=== PATIENT | male | born 1975 | race Caucasian/White ===

== ENCOUNTER → 2016-05-23 | Outpatient (REF) | payer OTHER | LOC: M LAB REF 16:47 | PROVIDERS: ATTEND Family Medicine | DX: L02.416 Cutaneous abscess of left lower limb (principal) ==

== ENCOUNTER 2016-12-13 08:09 | Outpatient (CLI) | payer OTHER ==
[~2016-12-13] VITALS: Ht 172.7 cm; Wt 97.5 kg
[~2016-12-13 08:09] MED LIST: DULE100A IN; LISI-538 PO; MULT1TAB11 PO; NEXI40CA PO; SING10TA32 PO
[2016-12-13] MEDS ORDERED: NS 1,000 ML IV ONE (08:15)
[2016-12-13] MEDS ORDERED: PROPOFOL 200 MG/20 ML VIAL As Ordered ONE (09:19)
[2016-12-13] MEDS ORDERED: LIDOCAINE 2% INJ 100 MG/5 ML SDV (FOR ANES.) As Ordered ONE (09:19)
--- NOTE | 2016-12-13 09:35 | ROOR ---
Patient Name: Ramses Sierra Procedure Date: 12/13/2016 9:09 AM Date of : 1975 Age: 41 Room: [facility] Gender: Male Note Status: Finalized Procedure: Colonoscopy Indications: Hematochezia Providers: Wayne Sun MD Referring MD: Janneth MILLER DO Requesting Provider: Medicines: Monitored Anesthesia Care Complications: No immediate complications. Procedure: Pre-Anesthesia Assessment: - Prior to the procedure, a History and Physical was performed, and patient medications and allergies were reviewed. The patient is competent. The risks and benefits of the procedure and the sedation options and risks were discussed with the patient. All questions were answered and informed consent was obtained. Patient identification and proposed procedure were verified by the physician, the nurse and the anesthesiologist in the procedure room. Mental Status Examination: alert and oriented. Airway Examination: normal oropharyngeal airway and neck mobility. Respiratory Examination: clear to auscultation. CV Examination: normal. Prophylactic Antibiotics: The patient does not require prophylactic antibiotics. Prior Anticoagulants: The patient has taken no previous anticoagulant or antiplatelet agents. ASA Grade Assessment: II - A patient with mild systemic disease. After reviewing the risks and benefits, the patient was deemed in satisfactory condition to undergo the procedure. The anesthesia plan was to use monitored anesthesia care (MAC). Immediately prior to administration of medications, the patient was re-assessed for adequacy to receive sedatives. The heart rate, respiratory rate, oxygen saturations, blood pressure, adequacy of pulmonary ventilation, and response to care were monitored throughout the procedure. The physical status of the patient was re-assessed after the procedure. The Colonoscope was introduced through the anus and advanced to the terminal ileum, with identification of the appendiceal orifice and IC valve. The colonoscopy was performed without difficulty. The patient tolerated the procedure well. The quality of the bowel preparation was good. The terminal ileum, ileocecal valve, appendiceal orifice, and rectum were photographed. Scope insertion time was 3 minutes. Scope withdrawal time was 10 minutes. The total duration of the procedure was 16 minutes. Findings: The perianal exam findings include non-thrombosed external hemorrhoids. The terminal ileum appeared normal. A 4 mm polyp was found in the rectum. The polyp was sessile. The polyp was removed with a cold biopsy forceps. Resection and retrieval were complete. Non-bleeding external and internal hemorrhoids were found during retroflexion. The hemorrhoids were large. Impression: - Non-thrombosed external hemorrhoids found on perianal exam. - The examined portion of the ileum was normal. - One 4 mm polyp in the rectum, removed with a cold biopsy forceps. Resected and retrieved. - Non-bleeding external and internal hemorrhoids. Recommendation: - Patient has a contact number available for emergencies. The signs and symptoms of potential delayed complications were discussed with the patient. Return to normal activities tomorrow. Written discharge instructions were provided to the patient. - High fiber diet. - Continue present medications. - Await pathology results. - Preparation H ointment: Apply externally daily for 7 days. - Repeat colonoscopy in 5-10 years for surveillance based on pathology results. - Return to GI clinic as previously scheduled. - Return to primary care physician. Wayne Sun MD Wayne Sun MD 12/13/2016 9:35:12 AM This report has been signed electronically. Number of Addenda: 0 Note Initiated On: 12/13/2016 9:09 AM Estimated Blood Loss: Estimated blood loss was minimal.
[2016-12-13 09:55] VITALS: BP 153/85
[2017-01-31] MEDS ORDERED: LISI-538 PO (11:22)
== END 2016-12-13 10:05 | disposition home or self-care (01) ==
LOC: M OPP 08:09
PROVIDERS: ATTEND Internal Medicine Gastroenterology
DX: K92.1 Melena (principal); K62.1 Rectal polyp; K64.4 Residual hemorrhoidal skin tags; K64.8 Other hemorrhoids; I10 Essential (primary) hypertension; Z87.19 Personal history of other diseases of the digestive system; K21.9 Gastro-esophageal reflux disease without esophagitis; Z79.899 Other long term (current) drug therapy; Z80.42 Family history of malignant neoplasm of prostate

== ENCOUNTER 2017-02-07 11:36 | Day surgery (SDC) | payer OTHER ==
[~2017-02-07] VITALS: Ht 172.7 cm; Wt 96.6 kg
[2017-02-07] MEDS ORDERED: NS 1,000 ML IV ONE (13:15)
[2017-02-07] MEDS ORDERED: GLYCOPYRROLATE INJ 0.2 MG/ML 2 ML VIAL As Ordered ONE (14:12)
[2017-02-07] MEDS ORDERED: PROPOFOL 200 MG/20 ML VIAL As Ordered ONE (14:20)
--- NOTE | 2017-02-07 14:38 | ROOR ---
Patient Name: Ramses Sierra Procedure Date: 02/07/2017 2:14 PM Date of : 1975 Age: 41 Room: [facility] Gender: Male Note Status: Finalized Procedure: Upper GI endoscopy Indications: Diagnostic sampling is indicated, Sampling of fluid is indicated Providers: Wayne Sun MD Referring MD: Janneth MILLER DO Requesting Provider: Medicines: Monitored Anesthesia Care Complications: No immediate complications. Procedure: Pre-Anesthesia Assessment: - Prior to the procedure, a History and Physical was performed, and patient medications and allergies were reviewed. The patient is competent. The risks and benefits of the procedure and the sedation options and risks were discussed with the patient. All questions were answered and informed consent was obtained. Patient identification and proposed procedure were verified by the physician, the nurse and the medical detail representative in the procedure room. Mental Status Examination: alert and oriented. Airway Examination: normal oropharyngeal airway and neck mobility. Respiratory Examination: clear to auscultation. CV Examination: normal. Prophylactic Antibiotics: The patient does not require prophylactic antibiotics. Prior Anticoagulants: The patient has taken no previous anticoagulant or antiplatelet agents. ASA Grade Assessment: II - A patient with mild systemic disease. After reviewing the risks and benefits, the patient was deemed in satisfactory condition to undergo the procedure. The anesthesia plan was to use monitored anesthesia care (MAC). Immediately prior to administration of medications, the patient was re-assessed for adequacy to receive sedatives. The heart rate, respiratory rate, oxygen saturations, blood pressure, adequacy of pulmonary ventilation, and response to care were monitored throughout the procedure. The physical status of the patient was re-assessed after the procedure. The Endoscope was introduced through the mouth, and advanced to the second part of duodenum. The upper GI endoscopy was accomplished without difficulty. The patient tolerated the procedure well. Findings: Scattered islands of salmon-colored mucosa were present from 39 to 41 cm. No other visible abnormalities were present. The maximum longitudinal extent of these esophageal mucosal changes was 2 cm in length. Biopsies were taken with a cold forceps for histology. Verification of patient identification for the specimen was done by the physician and nurse using the patient's name, date and medical record number. Estimated blood loss was minimal. Diffuse mildly erythematous mucosa without bleeding was found in the gastric antrum. Gastric fluid aspirated for PH testing. Biopsies were taken with a cold forceps for histology. The duodenal bulb and second portion of the duodenum were normal. Impression: - [place]-colored mucosa suspicious for short-segment Vu's esophagus. Biopsied. - Erythematous mucosa in the antrum. Biopsied. - Normal duodenal bulb and second portion of the duodenum. Recommendation: - Patient has a contact number available for emergencies. The signs and symptoms of potential delayed complications were discussed with the patient. Return to normal activities tomorrow. Written discharge instructions were provided to the patient. - Resume previous diet. - Continue present medications. - Await pathology results and Gastric PH results. - Use Nexium (esomeprazole) 40 mg PO daily. - Repeat upper endoscopy in 1 year for surveillance based on pathology results. - Return to GI clinic as previously scheduled on 02/22/2017 at 11:15 AM. - Return to primary care physician. Wayne Sun MD Wayne Sun MD 02/07/2017 2:37:50 PM This report has been signed electronically. Number of Addenda: 0 Note Initiated On: 02/07/2017 2:14 PM Estimated Blood Loss: Estimated blood loss was minimal.
[2017-02-07 14:50] VITALS: BP 159/86
== END 2017-02-07 15:03 | disposition home or self-care (01) ==
LOC: M OPP 11:36 → EDSTATUS 13:15 → M OPP 15:03
PROVIDERS: ATTEND Internal Medicine Gastroenterology
DX: K25.9 Gastric ulcer, unspecified as acute or chronic, without hemorrhage or perforation (principal); K22.8 Other specified diseases of esophagus; K31.89 Other diseases of stomach and duodenum; K29.70 Gastritis, unspecified, without bleeding; I10 Essential (primary) hypertension; Z79.899 Other long term (current) drug therapy; Z80.42 Family history of malignant neoplasm of prostate

== ENCOUNTER → 2017-09-12 | Outpatient (CLI) | payer OTHER ==
[2017-09-12 17:23] LABS: BASO # 0.1 10^3/uL (0.0-0.2); EOS # 0.1 10^3/uL (0.0-0.50); EOS % 1.7 % (0.0-3.0); HEMATOCRIT 42.7 % (42.0-52.0); HEMOGLOBIN 15.1 g/dl (13.5-17.5); IMMATURE GRANULOCYTE % 0.7 % (0-3.0); LYMPH # 1.9 10^3/uL (1.5-4.5); LYMPH % 26.7 % (24.0-44.0); MEAN CORPUSCULAR HEMOGLOBIN 32.5 pg (27.0-33.0); MEAN CORPUSCULAR HGB CONC 35.4 g/dl (32.0-36.5); MEAN CORPUSCULAR VOLUME 91.8 fl (80.0-96.0); MONO # 0.7 10^3/uL (0.0-0.8); MONO % 9.2 % (0.0-5.0); NEUTROPHILS # 4.3 10^3/uL (1.8-7.7); NEUTROPHILS % 60.7 % (36.0-66.0); PLATELET COUNT, AUTOMATED 216 10^3/uL (150-450); RED BLOOD COUNT 4.65 10^6/uL (4.30-6.10); RED CELL DISTRIBUTION WIDTH 12.2 % (11.5-14.5); WHITE BLOOD COUNT 7.1 10^3/uL (4.0-10.0)
[2017-09-12 18:02] LABS: ALBUMIN 4.6 GM/DL (3.2-5.2); ALBUMIN/GLOBULIN RATIO 1.31 (1.00-1.93); ALKALINE PHOSPHATASE 53 U/L (45-117); ALT/SGPT 33 U/L (12-78); ANION GAP 10 MEQ/L (8-16); AST/SGOT 32 U/L (7-37); BILIRUBIN,TOTAL 0.6 MG/DL (0.2-1.0); BLOOD UREA NITROGEN 25 MG/DL (7-18); CALCIUM LEVEL 9.2 MG/DL (8.5-10.1); CARBON DIOXIDE LEVEL 27 MEQ/L (21-32); CHLORIDE LEVEL 107 MEQ/L (98-107); CREATININE FOR GFR 1.08 MG/DL (0.70-1.30); GLOMERULAR FILTRATION RATE > 60.0 (>60); GLUCOSE, FASTING 90 MG/DL (70-100); POTASSIUM SERUM 4.7 MEQ/L (3.5-5.1); SODIUM LEVEL 144 MEQ/L (136-145); TOTAL PROTEIN 8.1 GM/DL (6.4-8.2)
== END ==
LOC: M WUC 13:42
DX: R11.0 Nausea (principal)
CPT/HCPCS: 80053

== ENCOUNTER → 2017-09-18 | Outpatient (CLI) | payer OTHER ==
[2017-09-18 15:47] LABS: FREE T4 0.83 NG/DL (0.76-1.46)
[2017-09-20 14:47] LABS: Lyme Disease IgG Ab 18 kDa Ban Present (.); Lyme Disease IgG Ab 23 kDa Ban Present (.); Lyme Disease IgG Ab 28 kDa Ban Present (.); Lyme Disease IgG Ab 30 kDa Ban Present (.); Lyme Disease IgG Ab 39 kDa Ban Present (.); Lyme Disease IgG Ab 41 kDa Ban Present (.); Lyme Disease IgG Ab 45 kDa Ban Present (.); Lyme Disease IgG Ab 58 kDa Ban Present (.); Lyme Disease IgG Ab 66 kDa Ban Present (.); Lyme Disease IgG Ab 93 kDa Ban Present (.); Lyme Disease IgG West Blot Int Positive (.); Lyme Disease IgM Ab 23 kDa Ban Present (.); Lyme Disease IgM Ab 39 kDa Ban Absent (.); Lyme Disease IgM Ab 41 kDa Ban Absent (.); Lyme Disease IgM Ab Quantitati 0.99 index (0.00-0.79); Lyme Disease IgM West Blot Int Negative (.)
== END ==
LOC: M SMT 11:16
DX: R42 Dizziness and giddiness (principal)
CPT/HCPCS: 84443

== ENCOUNTER → 2019-05-29 | Outpatient (CLI) | payer OTHER ==
[2019-05-29 12:35] LABS: BLOOD UREA NITROGEN 20 MG/DL (7-18); CALCIUM LEVEL 9.3 MG/DL (8.5-10.1); CARBON DIOXIDE LEVEL 30 MEQ/L (21-32); CHLORIDE LEVEL 101 MEQ/L (98-107); CREATININE FOR GFR 1.03 MG/DL (0.70-1.30); GLOMERULAR FILTRATION RATE > 60.0 (>60); GLUCOSE, FASTING 103 MG/DL (70-100); POTASSIUM SERUM 4.7 MEQ/L (3.5-5.1); SODIUM LEVEL 137 MEQ/L (136-145)
== END ==
LOC: M PLALAB 09:47
PROVIDERS: ATTEND Family Medicine
DX: I10 Essential (primary) hypertension (principal)

== ENCOUNTER 2019-06-11 12:36 | Emergency (ER) | payer OTHER ==
[~2019-06-11] VITALS: Ht 175.3 cm; Wt 95.5 kg
[~2019-06-11 12:36] MED LIST changes: +RALTEGRAVIR 400 MG TAB (ISENTRESS) PO SCH; +TRUVADA 200MG/300MG TABLET PO SCH
[2019-06-11] MEDS ORDERED: EXPOSURE KIT-ADULT 7 DAY SUPPLY PO ONE (12:45)
[2019-06-11] MEDS ORDERED: VALS1TAB67 PO (12:47)
[2019-06-11] MEDS ORDERED: HYDR25TAB PO (12:47)
[2019-06-11 12:52] VITALS: BP 124/58
[2019-06-11] MEDS ORDERED: RALTEGRAVIR 400 MG TAB (ISENTRESS) PO ONE (13:00)
[2019-06-11] MEDS ORDERED: TRUVADA 200MG/300MG TABLET PO ONE (13:00)
[2019-06-11] MEDS ORDERED: TRUVTAB PO (13:08)
[2019-06-11] MEDS ORDERED: RALT40TA PO (13:08)
[2019-06-11 13:15] LABS: BASO # 0.1 10^3/uL (0.0-0.2); BASO % 0.8 % (0.0-1.0); EOS # 0.1 10^3/uL (0.0-0.5); EOS % 1.7 % (0.0-3.0); HEMATOCRIT 41.8 % (42.0-52.0); HEMOGLOBIN 14.7 g/dl (13.5-17.5); LYMPH # 1.8 10^3/uL (1.5-5.0); LYMPH % 28.8 % (24.0-44.0); MEAN CORPUSCULAR HEMOGLOBIN 31.6 pg (27.0-33.0); MEAN CORPUSCULAR HGB CONC 35.2 g/dl (32.0-36.5); MEAN CORPUSCULAR VOLUME 89.9 fl (80.0-96.0); MONO # 0.7 10^3/uL (0.0-0.8); NEUTROPHILS # 3.7 10^3/uL (1.5-8.5); NEUTROPHILS % 57.2 % (36.0-66.0); PLATELET COUNT, AUTOMATED 203 10^3/uL (150-450); RED BLOOD COUNT 4.65 10^6/uL (4.30-6.10); WHITE BLOOD COUNT 6.4 10^3/uL (4.0-10.0)
[2019-06-11] MEDS ORDERED: ADACEL/BOOSTRIX VACCINE (DIPHTH/PERTUSS/ACELL/TETANUS)0.5ML SYR (90715) IM ONE (13:15)
[2019-06-11 13:40] LABS: ALBUMIN 4.5 GM/DL (3.2-5.2); ALT/SGPT 38 U/L (12-78); BILIRUBIN,TOTAL 0.8 MG/DL (0.2-1.0); BLOOD UREA NITROGEN 17 MG/DL (7-18); CALCIUM LEVEL 9.3 MG/DL (8.5-10.1); CARBON DIOXIDE LEVEL 32 MEQ/L (21-32); CHLORIDE LEVEL 101 MEQ/L (98-107); CREATININE FOR GFR 0.93 MG/DL (0.70-1.30); GLOMERULAR FILTRATION RATE > 60.0 (>60); GLUCOSE, FASTING 88 MG/DL (70-100); POTASSIUM SERUM 3.7 MEQ/L (3.5-5.1); SODIUM LEVEL 137 MEQ/L (136-145); TOTAL PROTEIN 7.9 GM/DL (6.4-8.2)
[2019-06-12 09:51] LABS: HEPATITIS B SURFACE ANTIBODY POSITIVE (POSITIVE)
[2019-06-12 10:02] LABS: HEPATITIS B SURFACE ANTIGEN NEGATIVE (NEGATIVE)
== END 2019-06-11 13:14 | disposition home or self-care (01) ==
LOC: M ED 12:36
DX: S60.511A Abrasion of right hand, initial encounter (principal); Z77.21 Contact with and (suspected) exposure to potentially hazardous body fluids; Y35.891A Legal intervention involving other specified means, law enforcement official injured, initial encounter; Z79.899 Other long term (current) drug therapy

== ENCOUNTER → 2019-10-30 | Outpatient (CLI) | payer OTHER ==
[~2019-10-30] MED LIST changes: +HYDR25TAB PO; +RALT40TA PO; -RALTEGRAVIR 400 MG TAB (ISENTRESS) PO SCH; -TRUVADA 200MG/300MG TABLET PO SCH; +TRUVTAB PO; +VALS1TAB67 PO
== END ==
LOC: M LABSMTC 11:00
PROVIDERS: ATTEND Family Medicine
DX: Z11.59 Encounter for screening for other viral diseases (principal); Z20.828 Contact with and (suspected) exposure to other viral communicable diseases

== ENCOUNTER 2022-08-09 23:10 | Emergency (ER) | payer OTHER ==
[~2022-08-09] VITALS: Ht 172.7 cm; Wt 110.0 kg
[~2022-08-09 23:10] MED LIST changes: -DULE100A IN; +EMTR1TAB16 PO; +HYDR-3490 PO; -HYDR25TAB PO; -LISI-538 PO; +LISI20TA33 PO; +MOME13HF8 IN; +MONT-5 PO; -SING10TA32 PO; -TRUVTAB PO
[2022-08-09] MEDS ORDERED: METH-1164 PO (23:26)
[2022-08-09] MEDS ORDERED: GABA-282 PO (23:26)
[2022-08-09] MEDS ORDERED: METO1TAB32 PO (23:26)
[2022-08-09] MEDS ORDERED: IRBE300T7 PO (23:26)
[2022-08-09] MEDS ORDERED: AMLO1TAB25 PO (23:26)
[2022-08-10 01:50] VITALS: BP 147/93
== END 2022-08-10 01:51 | disposition home or self-care (01) ==
LOC: M ED 23:10
DX: S13.4XXA Sprain of ligaments of cervical spine, initial encounter (principal); S50.12XA Contusion of left forearm, initial encounter; S63.617A Unspecified sprain of left little finger, initial encounter; I10 Essential (primary) hypertension; K21.9 Gastro-esophageal reflux disease without esophagitis; Y99.0 Civilian activity done for income or pay; V43.52XA Car driver injured in collision with other type car in traffic accident, initial encounter; Z79.891 Long term (current) use of opiate analgesic; Z79.899 Other long term (current) drug therapy

== ENCOUNTER 2025-01-06 15:17 | Emergency (ER) | payer OTHER ==
[~2025-01-06 15:17] MED LIST changes: +AMLO1TAB25 PO; +GABA-1172 PO; +IRBE300T25 PO; +METH-1164 PO; +METO1TAB32 PO
[2025-01-06] MEDS: ACETAMINOPHEN 325 MG TAB PO ONE (16:11)
[2025-01-06 21:35] VITALS: BP 137/79; TEMP 97.8; O2SAT 97
== END 2025-01-06 22:08 | disposition home or self-care (01) ==
LOC: M ED 15:17
DX: S83.511A Sprain of anterior cruciate ligament of right knee, initial encounter (principal); S83.411A Sprain of medial collateral ligament of right knee, initial encounter; S83.421A Sprain of lateral collateral ligament of right knee, initial encounter; X50.0XXA Overexertion from strenuous movement or load, initial encounter; M94.261 Chondromalacia, right knee; M25.461 Effusion, right knee; M23.303 Other meniscus derangements, unspecified medial meniscus, right knee; S70.11XA Contusion of right thigh, initial encounter; M17.11 Unilateral primary osteoarthritis, right knee; I10 Essential (primary) hypertension; Y92.89 Other specified places as the place of occurrence of the external cause; Y93.89 Activity, other specified; Y99.0 Civilian activity done for income or pay; Z79.899 Other long term (current) drug therapy